=== PATIENT | male | born 1990 | race Caucasian/White ===

== ENCOUNTER 2017-02-08 20:15 | Emergency (ER) | payer OTHER ==
[~2017-02-08] VITALS: Ht 175.3 cm; Wt 68.2 kg
[2017-02-08 20:17] VITALS: BP 129/60; PULSE 74; RESP 18; TEMP 97.8; O2SAT 99
[2017-02-08] MEDS ORDERED: methylPREDNISolone SOD SUCC 125 MG/2 ML VIAL IV PUSH ONE (20:45)
[2017-02-08] MEDS ORDERED: diphenhydrAMINE HCL 50 MG/ML VIAL IV PUSH ONE (20:45)
[2017-02-08] MEDS ORDERED: CETI10 PO (20:54)
[2017-02-08 20:55] VITALS: BP 146/65; PULSE 88; RESP 16; O2SAT 100
--- NOTE | 2017-02-08 21:04 | PD ---
HPI Chief Complaint: Allergic/Adverse Reaction Time Seen by Provider: 20:40 Travel History International Travel<30 days: No Contact w/Intl Traveler<30days: No Traveled to known affect area: No History of Present Illness HPI 26 year old male patient presents to the emergency department for evaluation after he broke out in generalized hives, facial swelling including upper lip swelling and periorbital edema. Patient is experience no respiratory distress at this time and is 100% on RA with RR 16. Patient states he has experienced this reaction historically and was instructed by his PCP to take Zyrtec daily for maintenance. Patient is unsure what the allergen trigger is but states he this. In the past he has changed his detergent, soaps, lotion, and attempted to isolate the allergen but has been unsuccessful so far. He states he has no idea what he's allergic to. Patient has no other medication history. He denies any chest pain, fever, chills, malaise, vomiting or diarrhea. Patient has an epi- pen but felt worried to use it. PFSH Past Medical History Medical History: Denies Significant Hx ADHD: Yes Medical other: Yes (allergic reaction ) Tetanus Vaccination: < 5 Years Influenza Vaccination: No Past Surgical History Surgical History: No Previous Surgery Social History Alcohol Use: Yes (occasional) Tobacco Use: Yes (1/2 ppd) Substance Use: Yes (marijuana) Allergies-Medications (Allergen,Severity, Reaction): Coded Allergies: No Known Allergies (Unverified , 02/08/17) Reported Meds & Prescriptions Reported Meds & Active Scripts Active Epipen 2-Antione Inj (Epinephrine) 0.3 Mg/0.3 Ml Pfpen 0.3 Mg IM ONCE PRN Ranitidine (Ranitidine HCl) 150 Mg Tab 150 Mg PO BID 10 Days Prednisone 20 Mg Tab 40 Mg PO DAILY 5 Days Take 40 mg (2 tablets) daily for 5 days Reported Cetirizine (Cetirizine HCl) 10 Mg Tab 10 Mg PO DAILY Review of Systems Except as stated in HPI: all other systems reviewed are Neg Physical Exam Narrative GENERAL: 26-year-old male patient with mild to moderate angioedema, upper lip swelling and periorbital edema. Skin flushed in color. Generalized hives overing torso, upper and lower extremities. SKIN: Flushed with generalized hives covering torso, upper and lower extremities.. HEAD: Normocephalic. Atraumatic. EYES: No scleral icterus. Periorbital edema noted. PERRLA demonstrated bilaterally. No injection or drainage. THROAT: No pharyngeal injection, exudates, or tonsillar hypertrophy. Airway is patent. NECK: Supple, trachea midline. No JVD or lymphadenopathy. CARDIOVASCULAR: Regular rate and rhythm without murmurs, gallops, or rubs. RESPIRATORY: Breath sounds equal bilaterally. No accessory muscle use. No wheezing, rhonchi or rales. GASTROINTESTINAL: Abdomen soft, non-tender, nondistended. MUSCULOSKELETAL: No cyanosis, or edema. Data Data Last Documented VS Vital Signs Date Time Temp Pulse Resp B/P (MAP) Pulse Ox O2 Delivery O2 Flow Rate FiO2 02/08/17 20:55 88 16 146/65 (92) 100 Room Air 02/08/17 20:17 97.8 Orders Orders Diphenhydramine Inj (Benadryl Inj) (02/08/17 20:45) Methylprednisolone So Succ Inj (Solumedr (02/08/17 20:45) Ranitidine Liq (Zantac Liq) (02/08/17 21:30) MDM Medical Decision Making Medical Screen Exam Complete: Yes Emergency Medical Condition: Yes Differential Diagnosis Differential diagnosis include but not limited to allergic reaction, urticaria, angioedema, anaphylaxis Narrative Course Patient's physical exam is consistent with an allergic reaction that is not compromising his airway at this time. 50mg IV Benadryl, 125mg IV Solu-Medrol and 150mg Ranitidine PO ordered. Patient reassessed, angioedema and urticaria resolving. Patient's vital signs remain stable. Patient is discharged home with prescriptions for short dose prednisone, ranitidine and new epi pen with instructions on how to use it. Patient stable for discharge at this time with instructions to return to the emergency department with any worsening condition but otherwise follow up with primary care. Patient is going to follow up with his primary care tomorrow. Diagnosis Primary Impression: Allergic reaction Qualified Codes: T78.40XA - Allergy, unspecified, initial encounter Patient Instructions: General Allergic Reaction (ED), General Instructions Additional Instructions: Please return to emergency department if your symptoms return or worsen. Follow up with your primary care provider. Take medications as prescribed. Consider allergy testing to identify allergen. Med/Other Pt SpecificInfo: Prescription(s) given Scripts Epinephrine Inj (Epipen 2-Antione Inj) 0.3 Mg/0.3 Ml Pfpen 0.3 MG IM ONCE Y for ALLERGIC REACTION, #1 PACK 0 Refills Prov: Yu Camarillo 02/08/17 Ranitidine (Ranitidine) 150 Mg Tab 150 MG PO BID for Heartburn Management for 10 Days, #20 TAB 0 Refills Prov: Yu Camarillo 02/08/17 Prednisone (Prednisone) 20 Mg Tab 40 MG PO DAILY for 5 Days, #10 TAB 0 Refills Take 40 mg (2 tablets) daily for 5 days Prov: Yu Camarillo 02/08/17 Disposition: 01 DISCHARGE HOME Condition: Stable Yu Camarillo Feb 08, 2017 21:04
[2017-02-08] MEDS ORDERED: RANITIDINE HCL SYRUP 150 MG/10 ML UDC PO ONE (21:30)
[2017-02-08] MEDS ORDERED: PRED20 PO (21:51)
[2017-02-08] MEDS ORDERED: RANI150T PO (21:51)
[2017-02-08] MEDS ORDERED: EPIP0.3I IM (21:51)
== END 2017-02-08 23:07 | disposition home or self-care (01) ==
LOC: NEPE 20:15
DX: T78.40XA Allergy, unspecified, initial encounter (principal); F17.200 Nicotine dependence, unspecified, uncomplicated
CPT/HCPCS: 96374; 96375; 99284; J1200; J2930